=== PATIENT | male | born 1955 | race Caucasian/White ===

== ENCOUNTER → 2019-08-20 | Outpatient (CLI) | payer SELFPAY ==
[~2019-08-20] MED LIST: CHLO25 PO; CRUTCH USE; HYDACE5 PO; LORA1 PO; SERT25 PO
== END | disposition home or self-care (01) ==
LOC: PLD 07:24 → LAB SHORT 07:24
DX: R22.0 Localized swelling, mass and lump, head (principal)
CPT/HCPCS: 88173

== ENCOUNTER 2020-10-25 12:34 | Inpatient (IN) | payer OTHER, MEDICARE ==
[~2020-10-25] VITALS: Ht 177.8 cm; Wt 66.4 kg
[2020-10-25 13:16] LABS: BASOPHILS ABSOLUTE AUTO 0.01 K/mm3 (0.00-0.23); BASOPHILS PERCENT AUTO 0 % (0-2); EOSINOPHILS PERCENT AUTO 0 % (0-6); Hematocrit 38.8 % (37.0-53.0); Hemoglobin 14.3 g/dL (13.5-17.5); IMMATURE GRAN ABSOLUTE AUTO 0.03 K/mm3 (0.00-0.10); IMMATURE GRAN PERCENT AUTO 0 % (0-1); LYMPHOCYTES ABSOLUTE AUTO 0.73 K/mm3 (0.84-5.20); LYMPHOCYTES PERCENT AUTO 8 % (21-46); MONOCYTES ABSOLUTE AUTO 1.03 K/mm3 (0.16-1.47); MONOCYTES PERCENT AUTO 12 % (4-13); Mean Corpuscular HGB 36.9 pg (26.0-34.0); Mean Corpuscular HGB Conc 36.9 g/dL (31.5-36.5); Mean Corpuscular Volume 100 fL (80-100); Mean Platelet Volume 8.2 fL (9.1-12.4); NEUTROPHILS PERCENT AUTO 80 % (41-73); Platelet Count 160 K/mm3 (150-400); RDW Coefficient Variation 11.9 % (11.7-14.2); RDW Standard Deviation 42.9 fL (35.1-46.3); Red Blood Cell Count 3.88 M/mm3 (4.30-5.90)
[2020-10-25 13:26] LABS: Alanine Aminotransfer (ALT/SGP 19 U/L (12-78); Albumin/Globulin Ratio 1.3 (0.8-1.8); Alk Phos 127 U/L (50-136); Anion Gap 12 mmol/L (6-16); Aspartate Aminotrans (AST/SGOT 32 U/L (12-37); Blood Urea Nitrogen 6 mg/dL (8-24); Bun/Creatinine Ratio 8.8 (12.0-20.0); CO2, Blood 19 mmol/L (21-32); Calcium, Blood 8.7 mg/dL (8.5-10.1); Chloride, Blood 97 mmol/L (98-108); Creatinine, Blood 0.68 mg/dL (0.60-1.20); Glomerular Filtration Rate >60 (60-); Glucose, Blood 98 mg/dL (70-99); Potassium, Blood 4.1 mmol/L (3.5-5.5); Sodium, Blood 128 mmol/L (136-145)
[2020-10-25 13:50] LABS: Influenza A, PCR NEGATIVE (NEGATIVE); Influenza B, PCR NEGATIVE (NEGATIVE); Resp Syncytial Virus, PCR NEGATIVE (NEGATIVE); SARS-Cov-2 (COVID-19) PCR, MMC NEGATIVE (NEGATIVE)
[2020-10-25 14:54] LABS: International Normalized Ratio 0.99; Prothrombin Time Results 10.7 Sec (9.7-11.5)
--- NOTE | 2020-10-25 17:02 | NUR ---
PT ARRIVED TO THE UNIT AT 1655. PT ALERT AND ORIENTED BUT APPEARS SOMEWHAT WITHDRAWN. PT REPORTS PAIN IS TOLERABLE AT REST BUT YELLS OUT WITH MOVEMENT. VSS. WILL CONTINUE TO MONITOR UNTIL REPORT TO ROBBIE ENNIS.
--- NOTE | 2020-10-25 19:28 | NUR ---
SHIFT SUMMARY NO ACUTE CHANGES SINCE PT ARRIVED TO THE ROOM. PAIN MANAGED WITH IV PAIN MEDICATION. VSS. WILL MONITOR UNTIL REPORT TO ROBBIE RN.
[2020-10-26 05:23] LABS: BASOPHILS ABSOLUTE AUTO 0.03 K/mm3 (0.00-0.23); BASOPHILS PERCENT AUTO 0 % (0-2); EOSINOPHILS ABSOLUTE AUTO 0.01 K/mm3 (0.00-0.68); EOSINOPHILS PERCENT AUTO 0 % (0-6); Hematocrit 34.5 % (37.0-53.0); Hemoglobin 12.5 g/dL (13.5-17.5); IMMATURE GRAN ABSOLUTE AUTO 0.03 K/mm3 (0.00-0.10); IMMATURE GRAN PERCENT AUTO 0 % (0-1); LYMPHOCYTES ABSOLUTE AUTO 0.89 K/mm3 (0.84-5.20); LYMPHOCYTES PERCENT AUTO 13 % (21-46); MONOCYTES ABSOLUTE AUTO 1.01 K/mm3 (0.16-1.47); MONOCYTES PERCENT AUTO 15 % (4-13); Mean Corpuscular HGB 36.8 pg (26.0-34.0); Mean Corpuscular HGB Conc 36.2 g/dL (31.5-36.5); Mean Corpuscular Volume 102 fL (80-100); Mean Platelet Volume 8.8 fL (9.1-12.4); NEUTROPHILS ABSOLUTE AUTO 4.71 K/mm3 (1.96-9.15); NEUTROPHILS PERCENT AUTO 71 % (41-73); Platelet Count 101 K/mm3 (150-400); RDW Coefficient Variation 11.9 % (11.7-14.2); RDW Standard Deviation 43.8 fL (35.1-46.3); White Blood Cell Count 6.68 K/mm3 (4.00-11.30)
[2020-10-26 05:54] LABS: Anion Gap 6 mmol/L (6-16); Blood Urea Nitrogen 6 mg/dL (8-24); Bun/Creatinine Ratio 9.8 (12.0-20.0); CO2, Blood 25 mmol/L (21-32); Calcium, Blood 8.3 mg/dL (8.5-10.1); Chloride, Blood 95 mmol/L (98-108); Creatinine, Blood 0.61 mg/dL (0.60-1.20); Glomerular Filtration Rate >60 (60-); Glucose, Blood 111 mg/dL (70-99); Potassium, Blood 3.7 mmol/L (3.5-5.5); Sodium, Blood 126 mmol/L (136-145)
--- NOTE | 2020-10-26 06:44 | NUR ---
SHIFT SUMMARY LYING IN SEMI FOWLERS WITH EYES OPEN WHILE TV IN ROOM AND CROCHETTING. IMMOBILIZER TO RLE IN PLACE. CONTINUES TO HAVE GOOD DISTAL PULSES. FOOT IS NOW WARM TO TOUCH. SHADOWING CONTINUES TO EXPAND BEYOND MARKINGS AT START OF SHIFT. NO FURTHER SIGNIFICANT CHANGES NOTED THIS SHIFT. DENIES FURTHER NEEDS AT THIS TIME. SAFETY MEASURES IN PLACE. WILL CONTINUE TO MONITOR FOR CHANGES/NEEDS AND ADDRESS THEM THEY ARISE. WILL GIVE HAND OFF TO ONCOMING SHIFT USING SBAR DURING BEDSIDE REPORT.
--- NOTE | 2020-10-26 08:43 | NUR ---
SHIFT ASSESSMENT PT WAS ASSESS THIS AM. LUNG SOUNDS CLEAR EXCEPT IN L BASE, WHEEZES PRESENT. PT HAS HX OF SMOKING. PT IS ALERT AND ORIENTED. HE COMPLAINS OF 9/10 PAIN BUT APPEARS DROWSY AND APPEARS TO BE SLEEPING BETWEEN CARE. RLE SWELLING APPEARS INCREASED FROM TIME OF ADMIT. PT DENIES NUMBNESS AND TINGLING TO LOWER EXTREMITIES. PULSES PRESENT, CAP REFIL WNL. PT IS ABLE TO WIGGLE HIS TOES. VSS. WILL CONTINUE TO MONITOR.
--- NOTE | 2020-10-26 10:57 | NUR ---
DR. YAN NOTIFIED OF LOW SODIUM OF 126. PT HAS NORMAL SALINE RUNNING. NO NEW ORDERS AT THIS TIME. NO NOTED CHANGE IN PT'S CONDITION.
--- NOTE | 2020-10-26 11:48 | NUR ---
PT TAKEN TO DAY SURGERY PRE-OP. SURGICAL PACKET COMPLETE. PT GIVEN PAIN MEDICATION PRIOR TO GOING TO DAY SURGERY.
--- NOTE | 2020-10-26 12:23 | NUR ---
History, Chart, Medications and Allergies reviewed before start of procedure.Lungs clear T/O to Auscultation. Patient confirms NPO status and agrees with scheduled surgery. PT IS GOING TO SIGN REFUSAL FOR RING ON LEFT HAND. SENT PATIENT BACK TO OR WITH RIGHT LEG BRACE ON. WILL LET CUPROUS CHLORIDE HELPER KNOW WE DIDN'T PREP DUE TO PAIN.
--- NOTE | 2020-10-26 13:18 | NUR ---
URINE WAS DARK ELEUTERIO.
--- NOTE | 2020-10-26 16:52 | NUR ---
PT ARRIVED BACK FROM PACU PT ARRIVED BACK TO THE ROOM FROM PACU. PT IS AWAKE AND ORIENTED BUT DROWSY. DENIES PAIN AND NAUSEA. PT IS PALE. VSS, EXCEPT FOR ELEVATED BP, WILL MONITOR BP AND TREAT PER ORDERS IF NEEDED. PEDAL AND TIBAL PULSES TO RLE PRESENT AND PALPABLE. PT'S RLE IS WARM TO THE TOUCH, CAP REFIL WNL AND PT IS ABLE TO WIGGLE HIS TOES. PT DENIES NUMBNESS AND TINGLING TO RLE. WILL CONTINUE TO MONITOR.
--- NOTE | 2020-10-26 18:21 | NUR ---
SHIFT SUMMARY PT HAS BEEN IN PLEASENT MOOD THROUGHOUT SHIFT. PT DOES HAVE BASELINE TREMOR IN HANDS. PT LEFT FOR SURGERY AT 1148, PT RETURNED FROM SURGERY AT 1645. OR REPORTED EBL OF 400. UPON ARRIVAL FROM OR PT HAS HAD EVELEVATED BP, TREATED BY MEDS PER EMAR. PT IS TOLERATED REGULAR DIET AND THIN LIQUIDS. PTS SKIN APPEARED WHITE WHEN RETURNED FROM OR. PT IS A&O X4. PT IS RESTING IN BED WATCHING T.V. CALL LIGHT IS WITHIN REACH.
[2020-10-27 04:31] LABS: BASOPHILS ABSOLUTE AUTO 0.01 K/mm3 (0.00-0.23); BASOPHILS PERCENT AUTO 0 % (0-2); EOSINOPHILS PERCENT AUTO 0 % (0-6); Hematocrit 28.9 % (37.0-53.0); Hemoglobin 10.6 g/dL (13.5-17.5); IMMATURE GRAN ABSOLUTE AUTO 0.04 K/mm3 (0.00-0.10); IMMATURE GRAN PERCENT AUTO 0 % (0-1); LYMPHOCYTES ABSOLUTE AUTO 0.44 K/mm3 (0.84-5.20); LYMPHOCYTES PERCENT AUTO 4 % (21-46); MONOCYTES ABSOLUTE AUTO 0.98 K/mm3 (0.16-1.47); MONOCYTES PERCENT AUTO 10 % (4-13); Mean Corpuscular HGB 37.6 pg (26.0-34.0); Mean Corpuscular HGB Conc 36.7 g/dL (31.5-36.5); Mean Corpuscular Volume 103 fL (80-100); Mean Platelet Volume 9.1 fL (9.1-12.4); NEUTROPHILS ABSOLUTE AUTO 8.75 K/mm3 (1.96-9.15); NEUTROPHILS PERCENT AUTO 86 % (41-73); Platelet Count 106 K/mm3 (150-400); RDW Coefficient Variation 11.7 % (11.7-14.2); RDW Standard Deviation 43.7 fL (35.1-46.3); Red Blood Cell Count 2.82 M/mm3 (4.30-5.90); White Blood Cell Count 10.22 K/mm3 (4.00-11.30)
--- NOTE | 2020-10-27 05:06 | NUR ---
SHIFT SUMMARY LYING IN SEMI FOWLERS WITH EYES OPEN WHILE TV IN ROOM, HAS RESTED OFF AND ON. IMMOBILIZER TO RLE IN PLACE. CONTINUES TO HAVE GOOD DISTAL PULSES, CAP REFILL <3 SEC, AND WARM TO TOUCH. PAIN MANAGED PER EMAR. NO SIGNIFICANT CHANGES NOTED THIS SHIFT. DENIES FURTHER NEEDS AT THIS TIME. SAFETY MEASURES IN PLACE. WILL CONTINUE TO MONITOR FOR CHANGES/NEEDS AND ADDRESS THEM THEY ARISE. WILL GIVE HAND OFF TO ONCOMING SHIFT USING SBAR DURING BEDSIDE REPORT.
--- NOTE | 2020-10-27 07:50 | NUR ---
PT LAYING IN BED HAS THE LEG ELEV ON PILLOW AND IMMOBLIZER IN PLACE PT HAS NO SHADOW TO THE J LUIS WRAP STATED NO NUMBNESS OR TINGLING CAN WIGGLE TOES PT HAS TREMOR REPORTS POOR APPEATITE
--- NOTE | 2020-10-27 10:27 | NUR ---
TALKED WITH PT'S SISTER UPDATED HER ON HIS COND
[2020-10-27 14:16] LABS: Hematocrit 28.1 % (37.0-53.0); Mean Corpuscular HGB 36.6 pg (26.0-34.0); Mean Corpuscular HGB Conc 35.6 g/dL (31.5-36.5); Mean Corpuscular Volume 103 fL (80-100); Mean Platelet Volume 8.8 fL (9.1-12.4); Platelet Count 100 K/mm3 (150-400); RDW Standard Deviation 45.1 fL (35.1-46.3); Red Blood Cell Count 2.73 M/mm3 (4.30-5.90); White Blood Cell Count 11.03 K/mm3 (4.00-11.30)
[2020-10-27 14:43] LABS: BAND PERCENT MAN 4 % (0-8); BASOPHILS PERCENT MAN 0 % (0-2); EOSINOPHILS PERCENT MAN 0 % (0-6); LYMPHOCYTES ABSOLUTE MAN 0.88 K/mm3 (0.84-5.20); LYMPHOCYTES PERCENT MAN 8 % (21-46); MONOCYTES ABSOLUTE MAN 0.66 K/mm3 (0.16-1.47); MONOCYTES PERCENT MAN 6 % (4-13); NEUTROPHILS ABSOLUTE MAN 9.48 K/mm3 (1.96-9.15); SEG NEUTROPHILS PERCENT MAN 82 % (41-73); TOTAL CELLS COUNTED 100
[2020-10-27 14:44] LABS: Alanine Aminotransfer (ALT/SGP 18 U/L (12-78); Albumin, Blood 2.9 g/dL (3.4-5.0); Alk Phos 81 U/L (50-136); Anion Gap 7 mmol/L (6-16); Aspartate Aminotrans (AST/SGOT 38 U/L (12-37); Bilirubin, Total 0.9 mg/dL (0.1-1.0); Blood Urea Nitrogen 9 mg/dL (8-24); Bun/Creatinine Ratio 14.1 (12.0-20.0); CO2, Blood 27 mmol/L (21-32); Calcium, Blood 8.2 mg/dL (8.5-10.1); Chloride, Blood 93 mmol/L (98-108); Creatinine, Blood 0.64 mg/dL (0.60-1.20); Globulin, Blood 2.8 g/dL (2.2-4.0); Glomerular Filtration Rate >60 (60-); Glucose, Blood 103 mg/dL (70-99); Potassium, Blood 3.6 mmol/L (3.5-5.5); Sodium, Blood 127 mmol/L (136-145); Total Protein, Blood 5.7 g/dL (6.4-8.2)
--- NOTE | 2020-10-27 17:23 | NUR ---
ADMIT: 10/25/20 DISCHARGE: DX: Right leg pain CC: kwilcox KAREN CALL: ELIAN SUTHERLAND (PARENT) RESIDENCE: [facility] CAREGIVER: self DX: COPD, heartburn, thoracic spondylosis, COPD, see list DME: electric scooter, walker, wheelchair. CCM: none HOME HEALTH: none SUMMARY: Admit: 10/25/20 10/27/[address] Guerra, patient most likely will need snf- updated Dr that SNF will need 4-5 days to moniter ciwa. 10/27/20 OT recommends snf s/w Jessica in care management about acceptance at [facility] due to patient CIWA is being monitored. She states [place] prefers the patient staying in hospital for 4-5 days to monitor CIWA. I will meet with Jose Daniel on to discuss SNF preferece. Currently he lives a [place] with his mother. He uses a electric scooter for mobility, has a walker and wheel chair. 1. Status post mechanical fall resulting in right distal femur fracture. Plan is for surgery by Orthopedics in a.m. Dr. Mcdonald from Orthopedics has seen the patient. We will keep the patient n.p.o. at midnight.
--- NOTE | 2020-10-27 19:30 | NUR ---
updated pt's sister over the phone
--- NOTE | 2020-10-28 04:08 | NUR ---
SHIFT SUMMARY A/O X3, ANXIOUS AND TREMULOUS AT REST. PT WOKE UP DISORIENTED AND YELLING OUT IN THE MIDDLE OF THE NIGHT D/T VISUAL HALLUCINATIONS. CIWA PER PROTOCOL, MEDICATED PER EMAR. DRESSING TO R. LEG C/D/I WITH SPLINT IN PLACE. VSS, NO ACUTE CHANGES AT THIS TIME. BED IN LOWEST POSITION WITH CALL LIGHT IN REACH. WILL CONTINUE TO MONITOR AND REPORT TO ONCOMING RN.
[2020-10-28 04:29] LABS: BASOPHILS ABSOLUTE AUTO 0.02 K/mm3 (0.00-0.23); BASOPHILS PERCENT AUTO 0 % (0-2); EOSINOPHILS ABSOLUTE AUTO 0.03 K/mm3 (0.00-0.68); EOSINOPHILS PERCENT AUTO 0 % (0-6); Hematocrit 26.7 % (37.0-53.0); Hemoglobin 9.5 g/dL (13.5-17.5); IMMATURE GRAN ABSOLUTE AUTO 0.06 K/mm3 (0.00-0.10); IMMATURE GRAN PERCENT AUTO 1 % (0-1); LYMPHOCYTES ABSOLUTE AUTO 1.13 K/mm3 (0.84-5.20); LYMPHOCYTES PERCENT AUTO 12 % (21-46); MONOCYTES ABSOLUTE AUTO 1.04 K/mm3 (0.16-1.47); MONOCYTES PERCENT AUTO 11 % (4-13); Mean Corpuscular HGB Conc 35.6 g/dL (31.5-36.5); Mean Corpuscular Volume 101 fL (80-100); Mean Platelet Volume 9.2 fL (9.1-12.4); NEUTROPHILS ABSOLUTE AUTO 7.37 K/mm3 (1.96-9.15); NEUTROPHILS PERCENT AUTO 76 % (41-73); Platelet Count 117 K/mm3 (150-400); RDW Coefficient Variation 11.9 % (11.7-14.2); Red Blood Cell Count 2.64 M/mm3 (4.30-5.90); White Blood Cell Count 9.65 K/mm3 (4.00-11.30)
[2020-10-28 05:00] LABS: Anion Gap 3 mmol/L (6-16); Blood Urea Nitrogen 5 mg/dL (8-24); Bun/Creatinine Ratio 8.1 (12.0-20.0); CO2, Blood 28 mmol/L (21-32); Calcium, Blood 7.7 mg/dL (8.5-10.1); Chloride, Blood 97 mmol/L (98-108); Creatinine, Blood 0.62 mg/dL (0.60-1.20); Glomerular Filtration Rate >60 (60-); Glucose, Blood 110 mg/dL (70-99); Potassium, Blood 3.2 mmol/L (3.5-5.5); Sodium, Blood 128 mmol/L (136-145)
[2020-10-28 07:54] LABS: IMMATURE RETIC FRACTION 21.6 % (2.3-16.0); RETIC HGB EQUIVALENT 41.7 pg (28.20-36.60); RETICULOCYTE ABSOLUTE 0.0541 M/mm3 (0.0200-0.1100); RETICULOCYTE COUNT PERCENT 2.09 % (0.50-2.50)
[2020-10-28 14:48] LABS: BASOPHILS ABSOLUTE AUTO 0.02 K/mm3 (0.00-0.23); BASOPHILS PERCENT AUTO 0 % (0-2); EOSINOPHILS PERCENT AUTO 1 % (0-6); Hematocrit 28.5 % (37.0-53.0); Hemoglobin 9.9 g/dL (13.5-17.5); IMMATURE GRAN ABSOLUTE AUTO 0.07 K/mm3 (0.00-0.10); IMMATURE GRAN PERCENT AUTO 1 % (0-1); LYMPHOCYTES ABSOLUTE AUTO 1.32 K/mm3 (0.84-5.20); LYMPHOCYTES PERCENT AUTO 15 % (21-46); MONOCYTES ABSOLUTE AUTO 1.35 K/mm3 (0.16-1.47); MONOCYTES PERCENT AUTO 15 % (4-13); Mean Corpuscular HGB 36.7 pg (26.0-34.0); Mean Corpuscular HGB Conc 34.7 g/dL (31.5-36.5); Mean Platelet Volume 9.1 fL (9.1-12.4); NEUTROPHILS ABSOLUTE AUTO 6.09 K/mm3 (1.96-9.15); NEUTROPHILS PERCENT AUTO 68 % (41-73); Platelet Count 131 K/mm3 (150-400); RDW Coefficient Variation 12.2 % (11.7-14.2); RDW Standard Deviation 46.5 fL (35.1-46.3); White Blood Cell Count 8.95 K/mm3 (4.00-11.30)
[2020-10-28 14:50] LABS: Mean Corpuscular Volume 106 fL (80-100)
--- NOTE | 2020-10-28 17:37 | NUR ---
SUMMARY: Admit: / Per Dr Dye, had a bad night last night. yelling and hallucinations. CIWA today 5Will meet with patient sunday for snf preference and will submit snf checklist to [place] in care management for review by Sherlyn. Hopefull discharge Sat or Sun.
--- NOTE | 2020-10-28 18:10 | NUR ---
SHIFT SUMMARY PT ORIENTED WHEN AWAKE. CIWA OF 5 THROUGHOUT SHIFT. TOLERATING REGULAR DIET AND FLUIDS. NWB AND IMMOBILZER TO RIGHT LEG. DENIES NUMBNESS TINGLING TO RIGHT LEG. WIGGLES TOES AND ANKLE, WARM. PAIN CONTROLLED WITH PO PAIN MEDS. PLAN TO DISCHARGE TO SNF WHEN ROOM AVAILABLE.
--- NOTE | 2020-10-29 04:21 | NUR ---
SHIFT SUMMARY A/OX 3, PLEASANT AND COOPERATIVE WITH CARE. MEDICATED FOR PAIN PER EMAR. DRESSINGS TO R. LEG C/DI WITH SPLINT IN PLACE. CIWA'S PER PROTOCOL, <8. VSS, NO ACUTE CHANGES AT THIS TIME. AWAITING D/C TO SNF ONCE BED IS AVAILABLE. BED IN LOWEST POSITION WITH CALL LIGHT IN REACH. WILL CONTINUE TO MONITOR AND REPORT TO ONCOMING RN.
[2020-10-29 04:48] LABS: BASOPHILS ABSOLUTE AUTO 0.02 K/mm3 (0.00-0.23); BASOPHILS PERCENT AUTO 0 % (0-2); EOSINOPHILS ABSOLUTE AUTO 0.16 K/mm3 (0.00-0.68); EOSINOPHILS PERCENT AUTO 2 % (0-6); Hematocrit 28.1 % (37.0-53.0); Hemoglobin 9.8 g/dL (13.5-17.5); IMMATURE GRAN ABSOLUTE AUTO 0.08 K/mm3 (0.00-0.10); IMMATURE GRAN PERCENT AUTO 1 % (0-1); LYMPHOCYTES ABSOLUTE AUTO 1.06 K/mm3 (0.84-5.20); LYMPHOCYTES PERCENT AUTO 12 % (21-46); MONOCYTES ABSOLUTE AUTO 1.35 K/mm3 (0.16-1.47); MONOCYTES PERCENT AUTO 16 % (4-13); Mean Corpuscular HGB 36.7 pg (26.0-34.0); Mean Corpuscular HGB Conc 34.9 g/dL (31.5-36.5); Mean Corpuscular Volume 105 fL (80-100); Mean Platelet Volume 8.7 fL (9.1-12.4); NEUTROPHILS ABSOLUTE AUTO 6.01 K/mm3 (1.96-9.15); NEUTROPHILS PERCENT AUTO 69 % (41-73); Platelet Count 146 K/mm3 (150-400); RDW Standard Deviation 46.5 fL (35.1-46.3); Red Blood Cell Count 2.67 M/mm3 (4.30-5.90); White Blood Cell Count 8.68 K/mm3 (4.00-11.30)
[2020-10-29 05:03] LABS: Anion Gap 4 mmol/L (6-16); Blood Urea Nitrogen 5 mg/dL (8-24); Bun/Creatinine Ratio 7.3 (12.0-20.0); CO2, Blood 29 mmol/L (21-32); Calcium, Blood 8.1 mg/dL (8.5-10.1); Chloride, Blood 98 mmol/L (98-108); Creatinine, Blood 0.69 mg/dL (0.60-1.20); Glomerular Filtration Rate >60 (60-); Glucose, Blood 107 mg/dL (70-99); Potassium, Blood 3.7 mmol/L (3.5-5.5); Sodium, Blood 131 mmol/L (136-145)
--- NOTE | 2020-10-29 11:06 | NUR ---
1015 OT IN ROOM WITH PATIENT, PT TREMULOUS, RESP RATE 28. PATIENT BEING CUED BY OT ON USE OF WALKER AND AMBULATION. PT REQUESTS AN INHALER UPON FURTHER QUESTIONS PATIENT HAS NOT BEEN PRESCRIBED AN INHALER BUT USES ONE OCCASSIONALLY THAT A FRIEND BROUGHT HIM FROM THE [facility]. WILL DISCUSS INHALER WITH PHYSICIAN ON ROUNDS TODAY. PT DENIES SOB OR FEELING ANXIOUS OR TREMULOUS, STATES DOING THERAPY JUST WEARS HIM OUT
--- NOTE | 2020-10-29 13:42 | NUR ---
[facility] checklist, Will not review patient at this time due to notation of a behavior on 10/27/20. Policy with Sherlyn, no behaviors noted for 72 hours before review for SNF placement. Notified Dr Lindsey, Can send in for review again on Sunday if no behaviors noted. I will review again Sunday. Plan for Jose Daniel to stay the weekend. cp10/28/[address] Dye, had a bad night last night. yelling and hallucinations. [facility] 5Will meet with patient sunday for snf preference and will submit snf checklist to [place] in care management for review by Sherlyn. Hopefull discharge Sat or Sun.
[2020-10-30 04:41] LABS: BASOPHILS ABSOLUTE AUTO 0.05 K/mm3 (0.00-0.23); BASOPHILS PERCENT AUTO 1 % (0-2); EOSINOPHILS ABSOLUTE AUTO 0.12 K/mm3 (0.00-0.68); EOSINOPHILS PERCENT AUTO 2 % (0-6); Hematocrit 27.9 % (37.0-53.0); Hemoglobin 9.9 g/dL (13.5-17.5); IMMATURE GRAN ABSOLUTE AUTO 0.07 K/mm3 (0.00-0.10); IMMATURE GRAN PERCENT AUTO 1 % (0-1); LYMPHOCYTES ABSOLUTE AUTO 0.95 K/mm3 (0.84-5.20); LYMPHOCYTES PERCENT AUTO 12 % (21-46); MONOCYTES ABSOLUTE AUTO 1.37 K/mm3 (0.16-1.47); MONOCYTES PERCENT AUTO 17 % (4-13); Mean Corpuscular HGB 36.4 pg (26.0-34.0); Mean Corpuscular HGB Conc 35.5 g/dL (31.5-36.5); Mean Corpuscular Volume 103 fL (80-100); Mean Platelet Volume 8.5 fL (9.1-12.4); NEUTROPHILS ABSOLUTE AUTO 5.46 K/mm3 (1.96-9.15); NEUTROPHILS PERCENT AUTO 68 % (41-73); Platelet Count 192 K/mm3 (150-400); RDW Coefficient Variation 12.1 % (11.7-14.2); RDW Standard Deviation 45.3 fL (35.1-46.3); Red Blood Cell Count 2.72 M/mm3 (4.30-5.90); White Blood Cell Count 8.02 K/mm3 (4.00-11.30)
[2020-10-30 05:03] LABS: Anion Gap 6 mmol/L (6-16); Blood Urea Nitrogen 5 mg/dL (8-24); Bun/Creatinine Ratio 7.5 (12.0-20.0); CO2, Blood 27 mmol/L (21-32); Calcium, Blood 8.1 mg/dL (8.5-10.1); Chloride, Blood 96 mmol/L (98-108); Creatinine, Blood 0.67 mg/dL (0.60-1.20); Glomerular Filtration Rate >60 (60-); Glucose, Blood 105 mg/dL (70-99); Potassium, Blood 3.5 mmol/L (3.5-5.5); Sodium, Blood 129 mmol/L (136-145)
--- NOTE | 2020-10-30 06:27 | NUR ---
SHIFT SUMMARY POD4 R DISTAL FEMUR ORIF, A/O X4, VSS, ABIMAEL PO, VOIDING, PASSING FLATUS, PT RESTING THROUGH MOST OF SHIFT, PAIN WELL CONTROLLED PER EMAR, NO ACUTE EVENTS THIS SHIFT. CALL LIGHT IN REACH, WILL CONTINUE TO MONITOR AND REPORT TO ONCOMING DAY RN.
--- NOTE | 2020-10-30 07:35 | NUR ---
RECVD REPORT FROM PREVIOUS SHIFT RN, PT SITTING UP IN BED, REQUESTS ICE PACK FOR OPERATIVE LEG WHICH WAS PROVIDED. BED IN LOWEST POSITION, BED RAILS UP X 2, CALL LIGHT WITHIN REACH.
--- NOTE | 2020-10-30 10:42 | NUR ---
PT WORKING WITH PATIENT, USING WHEELCHAIR OUT IN HALLWAY
--- NOTE | 2020-10-30 14:47 | NUR ---
pt's sister and brother here, provided with info r/t discharge planning
--- NOTE | 2020-10-30 16:41 | NUR ---
shift summary: vss, no acute changes, a/o x 4, no confusion, denies n/v, denies hallucinations, CIWA 0. Baseline essential tremor noted. pt tolerating PO, given bowel care this shift, voiding. pt up in chair and has worked with physical therapy, who recommends SNF placement. Care management notified. pt's family visited this shift. operative limb remained in estevan wrap and leg immobilizer. pt rates pain at 5/10 following administration of analgesia per mar. pedal pulse strong operative limb, toes warm, capillary refil <3 seconds.
[2020-10-31 04:26] LABS: BASOPHILS ABSOLUTE AUTO 0.06 K/mm3 (0.00-0.23); BASOPHILS PERCENT AUTO 1 % (0-2); EOSINOPHILS ABSOLUTE AUTO 0.18 K/mm3 (0.00-0.68); EOSINOPHILS PERCENT AUTO 2 % (0-6); Hematocrit 27.8 % (37.0-53.0); Hemoglobin 9.9 g/dL (13.5-17.5); IMMATURE GRAN ABSOLUTE AUTO 0.08 K/mm3 (0.00-0.10); IMMATURE GRAN PERCENT AUTO 1 % (0-1); LYMPHOCYTES ABSOLUTE AUTO 0.81 K/mm3 (0.84-5.20); LYMPHOCYTES PERCENT AUTO 10 % (21-46); MONOCYTES ABSOLUTE AUTO 1.26 K/mm3 (0.16-1.47); MONOCYTES PERCENT AUTO 16 % (4-13); Mean Corpuscular HGB 37.1 pg (26.0-34.0); Mean Corpuscular HGB Conc 35.6 g/dL (31.5-36.5); Mean Corpuscular Volume 104 fL (80-100); Mean Platelet Volume 8.8 fL (9.1-12.4); NEUTROPHILS ABSOLUTE AUTO 5.46 K/mm3 (1.96-9.15); NEUTROPHILS PERCENT AUTO 70 % (41-73); Platelet Count 226 K/mm3 (150-400); RDW Coefficient Variation 12.4 % (11.7-14.2); RDW Standard Deviation 46.5 fL (35.1-46.3); Red Blood Cell Count 2.67 M/mm3 (4.30-5.90); White Blood Cell Count 7.85 K/mm3 (4.00-11.30)
[2020-10-31 04:49] LABS: Anion Gap 5 mmol/L (6-16); Blood Urea Nitrogen 5 mg/dL (8-24); Bun/Creatinine Ratio 7.8 (12.0-20.0); CO2, Blood 26 mmol/L (21-32); Calcium, Blood 8.2 mg/dL (8.5-10.1); Chloride, Blood 97 mmol/L (98-108); Creatinine, Blood 0.64 mg/dL (0.60-1.20); Glomerular Filtration Rate >60 (60-); Glucose, Blood 119 mg/dL (70-99); Potassium, Blood 3.7 mmol/L (3.5-5.5); Sodium, Blood 128 mmol/L (136-145)
--- NOTE | 2020-10-31 06:06 | NUR ---
SHIFT SUMMARY POD5 R DISTAL FEMORAL ORIF, A/O X4, VSS, ABIMAEL PO, VOIDING, FLATUS BUT NO BM YET, REPORTS PAIN TOLERABLE. NO ACUTE CHANGES THIS SHIFT. CALL LIGHT IN REACH, WILL CONTINUE TO MONITOR AND REPORT TO ONCOMING DAY RN.
--- NOTE | 2020-10-31 19:32 | NUR ---
SHIFT SUMMARY PT IS WAITING FOR PLACEMENT POSSIBLY TOMORROW. PAIN HAS BEEN MANAGED WITH PO PAIN MEDICATION. DRESSING TO RLE WAS CHANGED TODAY. PT IS ABLE TO REPOSITION HIMSELF IN BED WITHOUT ASSISTANCE. VSS. REPORT GIVEN TO ROBBIE ENNIS.
--- NOTE | 2020-11-01 07:28 | NUR ---
SHIFT SUMMARY POD6 R DISTAL FEMORAL ORIF, A/O X4, VSS, TOLERATING PO, PAIN WELL MANAGED PER EMAR, NWB RLE, NO ACUTE EVENTS THIS SHIFT, NO BM YET BUT BOWEL CARE BEING GIVEN. CALL LIGHT IN PLACE, REPORT GIVEN TO DAY RN.
--- NOTE | 2020-11-01 17:18 | NUR ---
SHIFT SUMMARY PATIENT ALERT AND ORIENTED THROUGHOUT SHIFT. PAIN CONTROLLED WITH PO PAIN MEDS. IMMOBILIZER IN PLACE TO RIGHT LEG WITH J LUIS WRAP. TOLERATING REGULAR DIET AND FLUIDS. 1 PERSON ASSIST WITH WALKER AND GAIT BELT TO WALK. POOR JUDGEMENT OF WHEN TO STOP AND REST. PUSHES HIMSELF TOO LONG WHEN AMBULATING TO THE POINT OF FATIGUE. EDUCATED BY PHYSICAL THERAPY ON AWARENESS OF LIMITATIONS AND WHEN TO SAFELY STOP AND REST. PLAN TO DISCHARGE TO SNF WHEN BED AVAILABLE.
--- NOTE | 2020-11-02 03:54 | NUR ---
SHIFT SUMMARY A/OX4, COOPERATIVE WITH CARE. IMMOBOLIZER TO LLE IN PLACE. MEDICATED FOR PAIN PER EMAR. VSS, NO ACUTE CHANGES AT THIS TIME. AWAITING PLACEMENT AT SNF. BED IN LOWEST POSITION WITH CALL LIGHT IN REACH. WILL CONTINUE TO MONITOR AND REPORT TO ONCOMING RN.
--- NOTE | 2020-11-02 16:26 | NUR ---
SUMMARY: Admit: /10/20 Left message for Stefany at [facility] to discuss independant living post SNF. I have not heard back from her today. [facility] has accepted him for rehab if he has a discharge plan in place, per Jessica in care management. Updated Enio and sister Becca today in his room to the above information. Becca said she heard from Stefany, but no answer about his move in. I will review again on Sunday, hope to get a plan from [facility] so we can discharge to [facility] on Sunday. cp
--- NOTE | 2020-11-02 18:50 | NUR ---
SHIFT SUMMARY PT A/O X4; PLEASANT, COOPERATIVE WITH CARE AND ABLE TO MAKE NEEDS KNOWN. CONSTANT PAIN IN R KNEE CAP. PT ACCEPTED TO [facility] BUT IS STILL AWAITING A ROOM AT [facility]. WILL DC WHEN HE IS ABLE TO GET A ROOM AT [facility]. VSS,
--- NOTE | 2020-11-03 04:20 | NUR ---
SHIFT SUMMARY: DEANNE IS A&OX4. VSS, NO ACUTE EVENTS OVERNIGHT. HE IS ABLE TO MAKE HIS NEEDS KNOWN. HE DENIES ANY N/V, ABIMAEL PO INTAKE WELL. J LUIS WRAP AND IMMOBILIZER IN PLACE TO RLE. HE MOVES HIMSELF INDEPENDENTLY IN BED, ONE PERSON ASSIST TO THE CHAIR. HE REPORTS MINIMAL PAIN CONTROL WITH TWO TABLETS OF PERCOCET. HE IS SITTING UP IN THE BEDSIDE RECLINER WITH THE CALL LIGHT IN REACH. WILL REPORT TO DAY SHIFT RN.
[2020-11-03 04:37] LABS: Anion Gap 4 mmol/L (6-16); Blood Urea Nitrogen 5 mg/dL (8-24); Bun/Creatinine Ratio 7.4 (12.0-20.0); CO2, Blood 28 mmol/L (21-32); Calcium, Blood 8.5 mg/dL (8.5-10.1); Chloride, Blood 101 mmol/L (98-108); Creatinine, Blood 0.68 mg/dL (0.60-1.20); Ferritin, Serum 423 ng/mL (26-388); Glomerular Filtration Rate >60 (60-); Glucose, Blood 109 mg/dL (70-99); Iron Serum 35 ug/dL (65-175); Percent Saturation 21.3 % (20.0-50.0); Potassium, Blood 3.8 mmol/L (3.5-5.5); Sodium, Blood 133 mmol/L (136-145); Total Iron Binding Capacity 164 ug/dL (250-450)
--- NOTE | 2020-11-03 15:07 | NUR ---
SHIFT SUMMARY: POD 8 RIGHT FEMUR ORIF PATIENT IS ALERT AND ORIENTED X4. VS ARE WNL AND IS ON RA. PAIN IS CONTROLLED WITH 2 PERCOCET TABS. RIGHT LEG IS IN AN IMMOBILIZER AND IN AN J LUIS WRAP. THEY ARE C/D/I. HE IS ABLE TO WIGGLE FINGERS AND TOES AND IS A SBA WITH A FWW AND GAIT BELT. HE IS EATING AND DRINKING WELL VOIDING. CALLS APPROPRIATELY. CALL LIGHT WITHIN REACH. THE PLAN IS TO HAVE HIM TRANSFERRED TO [facility] TOMORROW, AND THEN TO [facility] AFTER THAT.
--- NOTE | 2020-11-03 17:20 | NUR ---
SUMMARY: Admit: /11/19 s/w Stefany at [facility], Nurse will be here tomorrow at 1:00 to assess [facility], hopefully they will give us a answer and we can discharge him to [facility] later afternoon. cpPatient has not had a BM in 10 days, brought to Dr Watkins attention. Updated floor nurse on discharge plan for . cp
--- NOTE | 2020-11-04 06:26 | NUR ---
SHIFT SUMMARY LYING IN SEMI FOWLERS WITH EYES OPEN WHILE TV IN ROOM. IMMOBILIZER TO RLE IN PLACE, GOOD DISTAL PULSES, WARM TO TOUCH. MEDICATED FOR PAIN PER EMAR. NO FURTHER SIGNIFICANT CHANGES NOTED THIS SHIFT. DENIES FURTHER NEEDS AT THIS TIME. SAFETY MEASURES IN PLACE. WILL CONTINUE TO MONITOR FOR CHANGES/NEEDS AND ADDRESS THEM THEY ARISE. WILL GIVE HAND OFF TO ONCOMING SHIFT USING SBAR DURING BEDSIDE REPORT.
--- NOTE | 2020-11-04 09:02 | NUR ---
AM ASSESSMENT PT RESTING IN BED. RLE ELEVATED. TIBIAL AND PEDAL PULSES PALPABLE AND PRESENT. PT DENIES N/T TO RLE. LUNG SOUNDS CLEAR IN ALL LUNDY, HEART SOUNDS WNL, AND BOWEL SOUNDS PRESENT. PAIN TOLERABLE AT THIS TIME, WILL CONTINUE TO MONITOR.
--- NOTE | 2020-11-04 17:18 | NUR ---
SUMMARY: Admit: /12/20 Vianey nurse from [facility] did not show up. I called her at 3 pm, she said she was suppose to come on Sunday. She would not be coming today. Updated , Nurse and Jessica re: no discharge today to snf, plan for Sunday afternoon. cp
--- NOTE | 2020-11-04 18:45 | NUR ---
SHIFT SUMMARY PLAN FOR PT TO DISCHARGE TO SNF TOMORROW. WAITING FOR KENA MERRITT TO EVALUATE PT FOR PLACEMENT THERE AFTER SNF BEFORE [facility] WILL ACCEPT PT. PAIN MANAGED WITH PO PAIN MEDICATION, FREQUENCY CHANGED TO EVERY 6 HOURS TO START REDUCING NARCOTIC USE. PT IS A SBA WITH GAIT BELT AND WALKER WHEN OOB. KNEE IMMOBILIZER REMAINS IN PLACE. PT WAS EDUCATED TO CALL FOR ASSISTANCE BEFORE GETTING OOB.
--- NOTE | 2020-11-04 19:24 | NUR ---
SHIFT SUMMARY PT HAS BEEN IN A PLEASENT MOOD THROUGHOUT SHIFT. PT HAS BEEN IN BED WATCHING TV THROUGHOUT SHIFT. PT INFORMED BUSINESS INFORMATION MANAGER ELEUTERIO THAT HE HAS BEEN SELF AMBULATING TO BATHROOM, PT WAS EDUCATED ABOUT THE RISK OF FALLING AND ENCOURAGED TO CALL FOR HELP BEFORE AMBULATING. PT IS A&O X4. PT IS TOLLERATING REG DIET AND THIN LIQUIDS. PT VSS. CALL LIGHT WITHIN REACH.
--- NOTE | 2020-11-05 06:32 | NUR ---
SHIFT SUMMARY POD12 R FEMORAL DISTAL ORIF, A/O X4, VSS, TOLERATING PO, PAIN MANAGED PER EMAR, NWB RLE, BM YESTERDAY PER PT REPORT, VOIDING WELL. NO ACUTE EVENTS THIS SHIFT. CALL LIGHT IN REACH, WILL CONTINUE TO MONITOR AND REPORT TO ONCOMING DAY RN.
--- NOTE | 2020-11-05 15:13 | NUR ---
ADMIT: 10/25/20 DISCHARGE: 11/05/20 DX: Right leg pain CC: kwilcox KAREN CALL: [facility] for karen Home Phone: RESIDENCE: Move to [facility] after REHAB at [facility] CAREGIVER: self Sister Becca Sullivan [phone] DX: COPD, heartburn, thoracic spondylosis, COPD, see list DME: CCM: none HOME HEALTH: none SUMMARY: Admit: 10/25/20 11/05/20 Vianey from [facility] came in to meet Enio today. She agreed that he could move into [facility] once he is finished at rehab at [facility] Discharge to [facility] today. Follow up [facility] 1-2 weeks. 11/04/20 Vianey nurse from [facility] did not show up. I called her at 3 pm, she said she was suppose to come on Sunday. She would not be coming today. Updated , Nurse and Jessica re: no discharge today to snf, plan for Sunday afternoon. cp
--- NOTE | 2020-11-05 15:52 | NUR ---
SHIFT SUMMARY: POD 12 RIGHT ORIF PATIENT IS ALERT AND ORIENTED X4. VS ARE WNL AND IS ON RA. PAIN IS CONTROLLED WITH PO PERCOCETS. HIS LEG IS AN IMMOBILIZER AND J LUSI WRAPPED. THIS NURSE CHANGED HIS J LUIS WRAP AND AQUACEL EARLIER THIS SHIFT. IT IS C/D/I AT THIS TIME. PATIENT IS ABLE TO WIGGLE TOES AND FINGERS WHEN ASKED. HE IS TOLERATING PO INTAKE AND IS VOIDING. HE HAD A BM YESTERDAY. HE IS A SBA WITH FWW WHEN GETTING UP. CALLS APPROPRIATELY. CALL LIGHT WITHIN REACH. THE PLAN IS TO BE DISCHARGED TOMORROW TO SNF AND THEN TO [facility] AFTER SNF.
[2020-11-05 16:11] LABS: SARS-Cov-2 (COVID-19) PCR, MMC NEGATIVE (NEGATIVE)
--- NOTE | 2020-11-05 18:09 | NUR ---
GAVE REPORT TO SHANNON ENNIS AT [facility]. THE HARD PERSCRIPTION AND DRESSING CHANGES ARE WITH HIS PACKET THAT WILL BE TAKEN WITH TRANSPORT. TRANSPORT WILL BE HERE SHORTLY TO TAKE HIM TO [facility]. PATIENT IS DRESSED AND HAS ITEMS GATHERED.
== END 2020-11-05 18:20 | disposition home or self-care (01) | DRG 481 ==
LOC: ER 12:34 → SURS 16:01
PROVIDERS: Emergency Medicine; Family Medicine; Orthopaedic Surgery; Physician Assistant; ADMIT Family Medicine
PROC: 0QSBXZZ Reposition Right Lower Femur, External Approach (ICD-10-PCS; principal; 2020-10-25)
PROC: 0QSB04Z Reposition Right Lower Femur with Internal Fixation Device, Open Approach (ICD-10-PCS; 2020-10-26)
DX: S72.401A Unspecified fracture of lower end of right femur, initial encounter for closed fracture (principal); C92.00 Acute myeloblastic leukemia, not having achieved remission; F10.139 Alcohol abuse with withdrawal, unspecified; E22.2 Syndrome of inappropriate secretion of antidiuretic hormone; F11.20 Opioid dependence, uncomplicated; K21.9 Gastro-esophageal reflux disease without esophagitis; F32.9 Major depressive disorder, single episode, unspecified; G62.9 Polyneuropathy, unspecified; W18.30XA Fall on same level, unspecified, initial encounter; J44.9 Chronic obstructive pulmonary disease, unspecified; F17.210 Nicotine dependence, cigarettes, uncomplicated; D53.9 Nutritional anemia, unspecified; G89.3 Neoplasm related pain (acute) (chronic); D50.9 Iron deficiency anemia, unspecified; D75.89 Other specified diseases of blood and blood-forming organs; E86.0 Dehydration; I10 Essential (primary) hypertension; Y92.009 Unspecified place in unspecified non-institutional (private) residence as the place of occurrence of the external cause; R45.1 Restlessness and agitation; K59.03 Drug induced constipation; T40.2X5A Adverse effect of other opioids, initial encounter; Z86.73 Personal history of transient ischemic attack (TIA), and cerebral infarction without residual deficits; Z98.890 Other specified postprocedural states; Z71.6 Tobacco abuse counseling; Z71.41 Alcohol abuse counseling and surveillance of alcoholic
CPT/HCPCS: 0241U; 27510; 36415; 70450; 71045; 72125; 73560-RT; 73706; 80048; 80053; 82728; 83540; 83550; 83605; 84145; 85025; 85045; 85610; 85730; 86850; 86900; 86901; 87040; 93005; 93010; 96365-59; 96375-59; 97110; 97116; 97162; 97166; 97530; 97535; 99152; 99285-25; A9270; C1713; C1769; G0480; J0171; J0360; J0690; J0735; J1100; J1170; J1885; J2060; J2405; J2704; J2795; J3010; J3411; J3475; J7030; J7042; J7120; Q9967; U0004

== ENCOUNTER 2021-01-26 12:06 | Emergency (ER) | payer OTHER ==
[~2021-01-26] VITALS: Ht 180.3 cm; Wt 62.6 kg
== END 2021-01-26 13:47 | disposition left against medical advice (07) ==
LOC: ER 12:06
DX: Z53.21 Procedure and treatment not carried out due to patient leaving prior to being seen by health care provider (principal)